=== PATIENT | female | born 2000 | race American Indian/Alaskan Native ===

== ENCOUNTER 2022-01-25 23:09 | Emergency (ER) | payer SELFPAY ==
--- NOTE | 2022-01-26 08:09 | Emergency Department Report ---
ED Abdominal Pain HPI - General Chief Complaint: Abdominal Pain Stated Complaint: ABD PAIN Time Seen by Provider: 01/26/22 07:29 Source: patient Mode of arrival: Ambulatory Limitations: Language Barrier - History of Present Illness Initial Comments: 21-year-old male who presents with bilateral lower abdominal pain 5/10 for the past week. pt is currently G2, P1, A0 including this , LMP: 12/17/2021. pain is exacerbated by movement, ptain is relieved by nothing tried. There is intermittent nausea vomiting. Patient states vaginal bleeding light that started yesterday. pt denies other vaginal discharge dysuria frequency or urgency. Patient denies history of fevers or chills. 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 MD Complaint: abdominal pain - Related Data Previous Rx's Medication Instructions Recorded Last Taken Type HYDROcodone/APAP 5-325 [[place] 1 each PO Q6HR PRN #12 tablet 01/26/22 Unknown Rx 5-325 mg TAB] cephALEXin [Keflex] 500 mg PO Q12HR 7 Days #21 cap 01/26/22 Unknown Rx Allergies Allergy/AdvReac Type Severity Reaction Status Date / Time No Known Allergies Allergy Unverified 01/25/22 23:13 ED Review of Systems ROS: Stated complaint: ABD PAIN Other details as noted in HPI Constitutional: denies: chills, fever Eyes: denies: eye pain, eye discharge, vision change ENT: denies: ear pain, throat pain Respiratory: denies: cough, shortness of breath, wheezing Cardiovascular: denies: chest pain, palpitations Endocrine: no symptoms reported Gastrointestinal: abdominal pain, nausea, vomiting. denies: diarrhea, constipation, melena Genitourinary: denies: urgency, dysuria, frequency, hematuria, discharge Musculoskeletal: denies: back pain Skin: denies: rash, lesions Neurological: denies: headache, weakness, paresthesias Psychiatric: denies: anxiety, depression Hematological/Lymphatic: denies: easy bleeding, easy bruising ED Past Medical Hx - Past Medical History Previous Medical History?: No - Surgical History Past Surgical History?: No - Social History Smoking Status: Never Smoker Substance Use Type: None - Medications Home Medications: Home Medications Medication Instructions Recorded Confirmed Last Taken Type HYDROcodone/APAP 5-325 [[place] 1 each PO Q6HR PRN #12 tablet 01/26/22 Unknown Rx 5-325 mg TAB] cephALEXin [Keflex] 500 mg PO Q12HR 7 Days #21 cap 01/26/22 Unknown Rx ED Physical Exam - General Limitations: Language Barrier General appearance: alert, in no apparent distress - Head Head exam: Present: normocephalic, normal inspection - Eye Eye exam: Present: normal appearance, EOMI Pupils: Present: normal accommodation - ENT ENT exam: Present: mucous membranes moist - Neck Neck exam: Present: normal inspection, full ROM. Absent: tenderness - Respiratory Respiratory exam: Present: normal lung sounds bilaterally. Absent: respiratory distress, wheezes, stridor - Cardiovascular Cardiovascular Exam: Present: regular rate, normal rhythm, normal heart sounds. Absent: systolic murmur, diastolic murmur, rubs, gallop - GI/Abdominal GI/Abdominal exam: Present: soft, tenderness, normal bowel sounds. Absent: distended, guarding, rebound, rigid, bruit (Bilateral lower abdomen), hernia - Rectal Rectal exam: Present: deferred - External exam: Present: other - Extremities Exam Extremities exam: Present: normal inspection, full ROM, normal capillary refill. Absent: tenderness - Back Exam Back exam: Present: normal inspection, full ROM. Absent: tenderness, CVA tenderness (R), CVA tenderness (L) - Neurological Exam Neurological exam: Present: alert, oriented X3, CN II-XII intact, normal gait - Expanded Neurological Exam Expanded Patient oriented to: Present: person, place, time Speech: Present: fluid speech Motor strength exam: RUE: 5, LUE: 5, RLE: 5, LLE: 5 Best Eye Response ([place]): (4) open spontaneously Best Motor Response ([place]): (6) obeys commands Best Verbal Response ([place]): (5) oriented [place] Total: 15 - Psychiatric Psychiatric exam: Present: normal affect, normal mood - Skin Skin exam: Present: warm, dry, intact, normal color. Absent: rash ED Course Vital Signs 01/25/22 01/26/22 01/26/22 23:12 11:20 14:12 Temperature 98.2 F Pulse Rate 81 Respiratory 18 14 14 Rate Blood Pressure 126/76 O2 Sat by Pulse 96 Oximetry ED Medical Decision Making - Lab Data Result diagrams: 01/26/22 08:04 01/26/22 08:04 - Radiology Data Radiology results: report reviewed, image reviewed ULTRASOUND OBSTETRIC LIMITED INDICATION / CLINICAL INFORMATION: abd pain pos preg. - Clinical Gestational Age (GA) in weeks, days: 5, 5 TECHNIQUE: Transabdominal and Transvaginal. COMPARISON: None available. FINDINGS: HEART RATE (beats per minute): No cardiac activity AMNIOTIC FLUID INDEX (cm) = no significant amniotic fluid (normal = 7-24 cm) PRESENTATION: Breech. ADDITIONAL FINDINGS: A deformed head appears to be in the uterine cavity with spine in the lower uterine segment. IMPRESSION: 1. Probable intrauterine demise with possible incomplete, spontaneous . Signer Name: Fab Ness MD Signed: 01/26/2022 12:07 PM Workstation Name: [id number] Transcribed By: DT Dictated By: Washington Ness MD Electronically Authenticated By: Washington Ness MD Signed Date/Time: 01/26/221206 DD/ 00 TD/TT: ULTRASOUND OBSTETRIC LIMITED INDICATION / CLINICAL INFORMATION: abd pain pos preg. - Clinical Gestational Age (GA) in weeks, days: 5, 5 TECHNIQUE: Transabdominal and Transvaginal. COMPARISON: None available. FINDINGS: HEART RATE (beats per minute): No cardiac activity AMNIOTIC FLUID INDEX (cm) = no significant amniotic fluid (normal = 7-24 cm) PRESENTATION: Breech. ADDITIONAL FINDINGS: A deformed head appears to be in the uterine cavity with spine in the lower uterine segment. IMPRESSION: 1. Probable intrauterine demise with possible incomplete, spontaneous . Signer Name: Fab Ness MD Signed: 01/26/2022 12:07 PM Workstation Name: [id number] Transcribed By: DT Dictated By: Washington Ness MD Electronically Authenticated By: Washington Ness MD Signed Date/Time: 01/26/221206 DD/ 00 TD/TT: - Medical Decision Making Ultrasound OB consistent with spontaneous plan DC to home with prescriptions. Follow-up with [facility] tomorrow return to the emergency department should symptoms worsen. Patient verbalized agreement and understanding with discharge plan. Patient DC'd home in stable condition at this time. Critical care attestation.: If time is entered above; I have spent that time in minutes in the direct care of this critically ill patient, excluding procedure time. ED Disposition Clinical Impression: Miscarriage Disposition: HOME / SELF CARE / HOMELESS Is pt being admited?: No Does the pt Need Aspirin: No Condition: Stable Instructions: Miscarriage, [id number], Managing Loss, Abdominal Pain (ED) Additional Instructions: You are having a miscarriage, it is important for you to follow-up with the [facility] doctor on Friday. Take medications as prescribed, follow-up with [facility]PER[facility] doctor in 1 to 2 days. Return to emergency department should symptoms worsen. Prescriptions: cephALEXin [Keflex] 500 mg PO Q12HR 7 Days #21 cap HYDROcodone/APAP 5-325 [[place] 5-325 mg TAB] 1 each PO Q6HR PRN #12 tablet PRN Reason: Pain Referrals: ROGER RAMIREZ MD [Staff Physician] - 2-3 Days [facility] [Provider [facility]] - 2-3 Days Forms: Work/School Release Form(ED) Print Language: UPPER SORBIAN
[2022-01-26 09:05] LABS: Basophils % (Auto) 0.3 % (0.0-1.8); Eosinophils # (Auto) 0.1 K/mm3 (0.0-0.4); Eosinophils % (Auto) 0.6 % (0.0-4.3); Hematocrit 36.8 % (30.3-42.9); Hemoglobin 11.7 gm/dl (10.1-14.3); Lymphocytes # (Auto) 2.2 K/mm3 (1.2-5.4); Lymphocytes % (Auto) 20.1 % (13.4-35.0); Mean Corpuscular HGB Conc 32 % (30-34); Mean Corpuscular Volume 85 fl (79-97); Monocytes # (Auto) 0.7 K/mm3 (0.0-0.8); Monocytes % (Auto) 5.9 % (0.0-7.3); Platelet Count 305 K/mm3 (140-440); Red Blood Count 4.31 M/mm3 (3.65-5.03); Red Cell Distribution Width 14.4 % (13.2-15.2)
[2022-01-26 09:25] LABS: Alanine Aminotransferase 12 units/L (7-56); Albumin 4.3 g/dL (3.9-5); Blood Urea Nitrogen 5 mg/dL (7-17); Calcium 9.5 mg/dL (8.4-10.2); Hemolysis Index 0
[2022-01-26 09:28] LABS: BUN/Creatinine Ratio 13
[2022-01-26 10:08] LABS: HCG Qualitative,Urine Positive (Negative)
[2022-01-26] MEDS ORDERED: ACETAMINOPHEN 500 MG TAB PO ONE (10:11)
[2022-01-26 10:18] LABS: Mucus,Urine 3+ /HPF
[2022-01-26 10:38] LABS: Bilirubin,Urine Negative (Negative); Blood,Urine 4+ (Negative); Color,Urine Straw (Yellow); Urobilinogen,Urine < 2.0 mg/dL (<2.0)
[2022-01-26 10:39] LABS: Bacteria,Urine 4+ /HPF (Negative)
[2022-01-26] MEDS ORDERED: cefTRIAXone/NS 1 GM/50 ML 1 GM/50 ML BAG IV ONE (11:46)
--- NOTE | 2022-01-26 12:11 | Ultrasound Report ---
ULTRASOUND OBSTETRIC LIMITED INDICATION / CLINICAL INFORMATION: abd pain pos preg. - Clinical Gestational Age (GA) in weeks, days: 5, 5 TECHNIQUE: Transabdominal and Transvaginal. COMPARISON: None available. FINDINGS: HEART RATE (beats per minute): No cardiac activity AMNIOTIC FLUID INDEX (cm) = no significant amniotic fluid (normal = 7-24 cm) PRESENTATION: Breech. ADDITIONAL FINDINGS: A deformed head appears to be in the uterine cavity with spine in th e lower uterine segment. IMPRESSION: 1. Probable intrauterine demise with possible incomplete, spontaneous . Signer Name: Fab Ness MD Signed: 01/26/2022 12:07 PM Workstation Name: [id number]
[2022-01-26] MEDS ORDERED: HYDROcodone/ACETAMINOPHEN 5-325 MG TAB PO ONE (13:02)
[2022-01-26 18:32] VITALS: BP 148/80
== END 2022-01-26 18:32 | disposition home or self-care (01) ==
LOC: ED 23:09
DX: O03.9 Complete or unspecified spontaneous abortion without complication (principal); Z3A.01 Less than 8 weeks gestation of pregnancy
CPT/HCPCS: 36415; 76801; 76817; 80053; 81001; 81025; 83690; 84702; 85025; 86900; 86901; 87086; 99284; J0696; 76802; 76830

== ENCOUNTER 2022-01-29 14:51 | Inpatient (IN) | payer SELFPAY ==
--- NOTE | 2022-01-29 15:30 | Emergency Department Report ---
ED Female HPI - General Stated complaint: MISCARRIGE ON 01/26/22 BLEEDING AND PAIN Time Seen by Provider: 01/29/22 15:27 Source: patient Mode of arrival: Ambulatory Limitations: Language Barrier - History of Present Illness Initial comments: 21 yo with numerous complaints She was here 2 nights ago for same- incomplete miscarriage She said My OBGYN was not open yesterday so she did not go in. She also co cough/weakness/vag bleed/abd pain Poor informant Language barrier MD Complaint: vaginal bleeding - Related Data Previous Rx's Medication Instructions Recorded Last Taken Type HYDROcodone/APAP 5-325 [[place] 1 each PO Q6HR PRN #12 tablet 01/26/22 Unknown Rx 5-325 mg TAB] cephALEXin [Keflex] 500 mg PO Q12HR 7 Days #21 cap 01/26/22 Unknown Rx Allergies Allergy/AdvReac Type Severity Reaction Status Date / Time No Known Allergies Allergy Unverified 01/25/22 23:13 ED Review of Systems ROS: Stated complaint: MISCARRIGE ON 01/26/22 BLEEDING AND PAIN Other details as noted in HPI Comment: All other systems reviewed and negative ED Past Medical Hx - Past Medical History Previous Medical History?: No - Surgical History Past Surgical History?: No - Family History Family history: no significant - Social History Smoking Status: Never Smoker Substance Use Type: None - Medications Home Medications: Home Medications Medication Instructions Recorded Confirmed Last Taken Type HYDROcodone/APAP 5-325 [[place] 1 each PO Q6HR PRN #12 tablet 01/26/22 Unknown Rx 5-325 mg TAB] cephALEXin [Keflex] 500 mg PO Q12HR 7 Days #21 cap 01/26/22 Unknown Rx ED Physical Exam - General Limitations: Language Barrier General appearance: alert, in no apparent distress - Head Head exam: Present: atraumatic, normocephalic - Eye Eye exam: Present: normal appearance - ENT ENT exam: Present: mucous membranes moist - Neck Neck exam: Present: normal inspection - Respiratory Respiratory exam: Present: normal lung sounds bilaterally. Absent: respiratory distress - Cardiovascular Cardiovascular Exam: Present: regular rate, normal rhythm. Absent: systolic murmur, diastolic murmur, rubs, gallop - GI/Abdominal GI/Abdominal exam: Present: soft, normal bowel sounds - Extremities Exam Extremities exam: Present: normal inspection - Back Exam Back exam: Present: normal inspection - Neurological Exam Neurological exam: Present: alert, oriented X3 - Psychiatric Psychiatric exam: Present: normal affect, normal mood - Skin Skin exam: Present: warm, dry, intact, normal color. Absent: rash ED Course Vital Signs 01/29/22 15:31 Temperature 100.5 F H Pulse Rate 126 H Respiratory 18 Rate Blood Pressure 119/56 [Right] O2 Sat by Pulse 100 Oximetry ED Medical Decision Making - Medical Decision Making rh pos prior ER visit reviewed will repeat lab to ER for eval Critical care attestation.: If time is entered above; I have spent that time in minutes in the direct care of this critically ill patient, excluding procedure time. ED Disposition Clinical Impression: Miscarriage Disposition: 30 STILL A PATIENT Is pt being admited?: No Does the pt Need Aspirin: No Condition: Stable
[2022-01-29 16:20] LABS: Hematocrit 28.5 % (30.3-42.9); Hemoglobin 9.4 gm/dl (10.1-14.3); Mean Corpuscular HGB Conc 33 % (30-34); Mean Corpuscular Volume 84 fl (79-97); Platelet Count 246 K/mm3 (140-440); Red Blood Count 3.39 M/mm3 (3.65-5.03)
[2022-01-29 16:33] LABS: Calcium 8.9 mg/dL (8.4-10.2); Hemolysis Index 0
[2022-01-29 16:42] LABS: Blood Urea Nitrogen 4 mg/dL (7-17)
[2022-01-29 16:47] LABS: BUN/Creatinine Ratio 8
[2022-01-29] MEDS ORDERED: POTASSIUM CHLORIDE ER 20 MEQ TAB PO ONE (19:44)
[2022-01-29] MEDS ORDERED: SODIUM CHLORIDE 0.9% 1000 ML 1,000 ML IV ONE (19:44)
[2022-01-29] MEDS ORDERED: ACETAMINOPHEN 500 MG TAB PO ONE (19:44)
--- NOTE | 2022-01-29 23:56 | Ultrasound Report ---
ULTRASOUND OBSTETRIC INDICATION: Pelvic pain, miscarriage. TECHNIQUE: Transabdominal. COMPARISON: OB ultrasound performed on 01/26/2022. FINDINGS: The previously seen intrauterine is no longer identified. The endometrial complex is thicke tone and contains heterogeneous material with mildly increased color flow, likely representing blood p roducts versus retained products of conception. No significant abnormality of the ovaries. No significant free fluid. IMPRESSION: Interval passage of the previously seen intrauterine with probable blood products versus re tained products of conception distending the endometrial canal. Signer Name: Daniel Oewn MD Signed: 01/29/2022 11:52 PM Workstation Name: [id number]
[2022-01-30] MEDS ORDERED: traMADol 50 MG TAB PO ONE (00:51)
[2022-01-30] MEDS ORDERED: IBUPROFEN 600 MG TAB PO ONE (00:51)
[2022-01-30] MEDS ORDERED: ONDANSETRON 4 MG ODT TAB PO ONE (00:51)
[2022-01-30] MEDS ORDERED: SODIUM CHLORIDE 0.9% 1000 ML 1,000 ML IV ONE ×3 (01:09→10:00)
[2022-01-30] MEDS ORDERED: SODIUM CHLORIDE 0.9% 1000 ML 1,000 ML ONE (04:19)
[2022-01-30 04:34] LABS: Bilirubin,Urine Negative (Negative); Blood,Urine Large (Negative); Color,Urine Amber (Yellow)
[2022-01-30 04:36] LABS: RBC,Urine > 182.0 /HPF (0.0-6.0)
[2022-01-30] MEDS ORDERED: cefTRIAXone/NS 1 GM/50 ML 1 GM/50 ML BAG IV ONE (04:43)
--- NOTE | 2022-01-30 04:48 | Emergency Department Report ---
ED Abdominal Pain HPI - General Chief Complaint: Upper Respiratory Infection Stated Complaint: MISCARRIGE ON 01/26/22 BLEEDING AND PAIN Time Seen by Provider: 01/29/22 15:27 Source: patient Mode of arrival: Ambulatory Limitations: Language Barrier - History of Present Illness Initial Comments: Patient is a A0 21-year-old female with no past medical history who presented to the ED with complaint of diffuse lower abdominal pain, nausea, heav y vaginal bleeding with clots, low back pain, diffuse body aches and pains, fever and chills for the last 5 days. Patient states that she was initially evaluated in this ED 3 days ago and diagnosed with miscarriage. Patient states that she has been having heavy vaginal bleeding since her last ED visit and that in the last 2 days her symptoms appear to worsen as she developed lightheadedness and generalized weakness as well. Patient states that she was unable to follow-up with an [facility]NAGER TE[facility] physician as was previously instructed. Patient denies dizziness, syncope, headache, vaginal discharge, chest pain or shortness of breath, numbness and tingling or weakness of lower and upper extremities bilaterally or diarrhea. MD Complaint: abdominal pain (lower ), other (nausea, vomiting, fever and chills) -: Gradual, days(s) (3) Location: suprapubic Radiation: none Migration to: no migration Severity scale (0 -10): 7 Quality: cramping, sharp Consistency: constant Improves With: nothing Worsens With: nothing Context: other (currently having a miscarriage with vaginal bleeding) Associated Symptoms: denies other symptoms, nausea. denies: vomiting, diarrhea, fever, chills, constipation, hematemesis, hematochezia, melena, anorexia, syncope - Related Data Previous Rx's Medication Instructions Recorded Last Taken Type HYDROcodone/APAP 5-325 [[place] 1 each PO Q6HR PRN #12 tablet 01/26/22 Unknown Rx 5-325 mg TAB] cephALEXin [Keflex] 500 mg PO Q12HR 7 Days #21 cap 01/26/22 Unknown Rx Allergies Allergy/AdvReac Type Severity Reaction Status Date / Time No Known Allergies Allergy Verified 01/30/22 04:21 ED Review of Systems ROS: Stated complaint: MISCARRIGE ON 01/26/22 BLEEDING AND PAIN Other details as noted in HPI Constitutional: denies: chills, fever Eyes: denies: eye pain, eye discharge, vision change ENT: denies: ear pain, throat pain Respiratory: denies: cough, shortness of breath, wheezing Cardiovascular: denies: chest pain, palpitations Endocrine: no symptoms reported Gastrointestinal: abdominal pain (lower abdominal pain), nausea. denies: diarrhea, hematemesis, melena Genitourinary: abnormal menses (vaginal bleeding). denies: urgency, dysuria, discharge Musculoskeletal: arthralgia, myalgia. denies: back pain, joint swelling Skin: denies: rash, lesions Neurological: headache. denies: weakness, paresthesias Psychiatric: denies: anxiety, depression Hematological/Lymphatic: denies: easy bleeding, easy bruising ED Past Medical Hx - Past Medical History Previous Medical History?: No - Surgical History Past Surgical History?: No - Social History Smoking Status: Never Smoker Substance Use Type: None - Medications Home Medications: Home Medications Medication Instructions Recorded Confirmed Last Taken Type HYDROcodone/APAP 5-325 [[place] 1 each PO Q6HR PRN #12 tablet 01/26/22 Unknown Rx 5-325 mg TAB] cephALEXin [Keflex] 500 mg PO Q12HR 7 Days #21 cap 01/26/22 Unknown Rx ED Physical Exam - General Limitations: Language Barrier General appearance: alert, in no apparent distress - Head Head exam: Present: atraumatic, normocephalic, normal inspection - Eye Eye exam: Present: normal appearance, PERRL, EOMI Pupils: Present: normal accommodation - ENT ENT exam: Present: normal exam, normal orophraynx, mucous membranes moist, TM's normal bilaterally, normal external ear exam - Neck Neck exam: Present: normal inspection, full ROM. Absent: tenderness - Respiratory Respiratory exam: Present: normal lung sounds bilaterally. Absent: respiratory distress, wheezes, rales, rhonchi, chest wall tenderness, accessory muscle use, decreased breath sounds, prolonged expiratory - Cardiovascular Cardiovascular Exam: Present: normal rhythm, tachycardia, normal heart sounds. Absent: systolic murmur, diastolic murmur, rubs, gallop - GI/Abdominal GI/Abdominal exam: Present: soft, tenderness (suprapubic), normal bowel sounds. Absent: guarding, rebound, hyperactive bowel sounds, hypoactive bowel sounds, organomegaly - Bi-manual exam: Present: other (pelvic exam deferred at this time) - Extremities Exam Extremities exam: Present: normal inspection, full ROM, normal capillary refill. Absent: tenderness, calf tenderness - Back Exam Back exam: Present: normal inspection, full ROM. Absent: tenderness, CVA tenderness (R), CVA tenderness (L), muscle spasm, paraspinal tenderness, vertebral tenderness - Neurological Exam Neurological exam: Present: alert, oriented X3, CN II-XII intact, normal gait, reflexes normal - Psychiatric Psychiatric exam: Present: normal affect, normal mood - Skin Skin exam: Present: warm, dry, intact, normal color. Absent: rash ED Course Vital Signs 01/29/22 01/29/22 01/30/22 15:31 19:31 01:09 Temperature 100.5 F H 98.6 F 99.5 F Pulse Rate 126 H 109 H 124 H Respiratory 18 18 16 Rate Blood Pressure 119/56 104/46 103/71 [Right] O2 Sat by Pulse 100 98 100 Oximetry 01/30/22 01/30/22 02:50 04:28 Temperature 99.7 F H Pulse Rate 110 H 122 H Respiratory 12 12 Rate Blood Pressure 88/34 108/61 [Right] O2 Sat by Pulse 100 100 Oximetry - Reevaluation(s) Reevaluation #1: 01/30/22 04:59 I paged and discussed the patient's case with the [facility] Physician pony edger Dr. Young who advised for review of the patient's lab test results, imaging reports agree with the plan of care to admit the patient. Dr. Young to take the patient to the OR for evacuation of products of conception there is still in the patient's uterus. Patient was therefore admitted to the hospital for further evaluation by the MANA[facility] TELE[facility] physician on-call Dr. Young ED Medical Decision Making - Lab Data Result diagrams: 01/29/22 15:46 01/29/22 15:46 - Radiology Data Radiology results: report reviewed, image reviewed [facility] [address] [place] [address] Ultrasound Report Signed Patient: ELO BARRIOS MR#: [id number] : 2000 Acct:[id number] Age/Sex: 21 / F ADM Date: 01/29/22 Loc: ED Attending Dr: Ordering Physician: KYLIE BYRNE Date of Service: 01/29/22 Procedure(s): US OB <= 14 weeks fetus Accession Number(s): [id number] cc: KYLIE BYRNE ULTRASOUND OBSTETRIC INDICATION: Pelvic pain, miscarriage. TECHNIQUE: Transabdominal. COMPARISON: OB ultrasound performed on 01/26/2022. FINDINGS: The previously seen intrauterine is no longer identified. The endometrial complex is thickened and contains heterogeneous material with mildly increased color flow, likely representing blood products versus retained products of conception. No significant abnormality of the ovaries. No significant free fluid. IMPRESSION: Interval passage of the previously seen intrauterine with probable blood products versus retained products of conception distending the endometrial canal. Signer Name: Daniel Owen MD Signed: 01/29/2022 11:52 PM Workstation Name: [id number] Transcribed By: RAUL Dictated By: Daniel Owen MD Electronically Authenticated By: Daniel Owen MD Signed Date/Time: 01/29/222351 DD/ 49 TD/TT: - Medical Decision Making This is a A0 21-year-old female with no past medical history who presented to the ED with complaint of diffuse lower abdominal pain, nausea, heavy vaginal bleeding with clots, low back pain, diffuse body aches and pains, fever and chills for the last 5 days. Patient states that she was initially evaluated in this ED 3 days ago and diagnosed with miscarriage. Patient states that she has been having heavy vaginal bleeding since her last ED visit and that in the last 2 days her symptoms appear to worsen as she developed lightheadedness and generalized weakness as well. Patient states that she was unable to follow-up with an [facility]NA[facility] TELE[facility] physician as was previously instructed. In the ED, patient is alert and oriented x3 and is not in any distress but febrile and tachycardic in triage. Patient was treated with 2 L of normal saline IV bolus. Patient was also treated with antiemetics and pain medications. Lab test results showed acute leukocytosis of 15,300, acute hyponatremia of 130 mmol/L and hypokalemia of 3.2 mmol/L. The patient hCG quant is 12,330 and lactic acid level was normal. Urinalysis showed significant urinary tract infection and blood in urine. Patient was treated also with Rocephin 1 g IV x1 and Zosyn 3.375 g IV x1. On reevaluation, patient's vital signs remained in stable with patient still tachycardic despite receiving 2 L of normal saline IV bolus and 1 L lactated Ringer's IV bolus x1. The transvaginal ultrasound showed interval passage of the previously seen intrauterine with probable blood products versus retained products of conception distending the endometrial canal. These findings were discussed with the MANA[facility] TELE[facility] physician on-call Dr. Young who upon review of the patient's record and test results as well as imaging reports advised the patient be admitted for subsequent evacuation in the OR of the retained products of conception in the patient's uterine cavity. The plan was also discussed with the ED attending physician Dr. Parker who agreed with the plan. Patient was therefore admitted to the hospital for further evaluation by Dr. Young. - Differential Diagnosis UTI; Incomplete miscarriage; Ovarian cyst; subchor. bleed Critical care attestation.: If time is entered above; I have spent that time in minutes in the direct care of this critically ill patient, excluding procedure time. ED Disposition Clinical Impression: Miscarriage, Sepsis due to incomplete miscarriage, Fever and chills, Urinary tract infection due to incomplete miscarriage, Nausea and vomiting in adult patient, Acute hyponatremia Abdominal pain Qualifiers: Abdominal location: lower abdomen, unspecified Qualified Code(s): R10.30 - Lower abdominal pain, unspecified Disposition: 02 [facility]ORT TERM [facility]OS[facility] Is pt being admited?: Yes Does the pt Need Aspirin: No Condition: Stable Referrals: RAFAEL YOUNG MD [Staff Physician] - 3-5 Days Time of Disposition: 06:21 Print Language: MALAWIAN
[2022-01-30] MEDS ORDERED: LACTATED RINGERS 1,000 ML IV ONE (04:58)
--- NOTE | 2022-01-30 06:07 | History and Physical Report ---
History of Present Illness Date of examination: 01/30/22 Date of admission: 01/30/2022 Chief complaint: Retained products of conception History of present illness: 21 y/o at 6-2/7 weeks gestation had incomplete miscarriage diagnosed last week. VB continued. She became weak. She went to ED. Retained POC's noted. She had fever, elavated WBC, low BP, and tachycardia. IV fluid boluses given in ED, but BP remained ~90/60. The patient was offered suction D&C to remove retained POC's and prevent septic . Past History Past Medical History: no pertinent history Past Surgical History: no surgical history Family/Genetic History: none Social history: no significant social history - Obstetrical History Expected Date of Delivery: 09/23/22 Actual Gestation: 6 Week(s) 2 Day(s) : 2 Para: 1 Hx # Term Pregnancies: 1 Number of Living Children: 1 Medications and Allergies Allergies Allergy/AdvReac Type Severity Reaction Status Date / Time No Known Allergies Allergy Verified 01/30/22 04:21 Home Medications Medication Instructions Recorded Confirmed Last Taken Type HYDROcodone/APAP 5-325 [[place] 1 each PO Q6HR PRN #12 tablet 01/26/22 Unknown Rx 5-325 mg TAB] cephALEXin [Keflex] 500 mg PO Q12HR 7 Days #21 cap 01/26/22 Unknown Rx Review of Systems All systems: negative - Vital Signs Vital signs: Vital Signs Temp Pulse Resp BP Pulse Ox 100.5 F H 126 H 18 119/56 100 01/29/22 15:31 01/29/22 15:31 01/29/22 15:31 01/29/22 15:31 01/29/22 15:31 Temp Pulse Resp BP Pulse Ox 99.7 F H 122 H 12 108/61 100 01/30/22 02:50 01/30/22 04:28 01/30/22 04:28 01/30/22 04:28 01/30/22 04:28 - Physical Exam Breasts: Positive: normal Cardiovascular: Regular rate Lungs: Positive: Clear to auscultation Abdomen: Positive: normal appearance Genitourinary (Female): Positive: normal external genitalia, normal perenium Vulva: both: normal Vagina: Positive: normal moisture Cervix: Positive: other (Open) Uterus: Positive: tender Adnexa: both: normal Anus/Rectum: Positive: normal perianal skin Extremities: Positive: normal Deep Tendon Reflex Grade: Normal +2 - Obstetrical FHR: other FHR comments: None. Results Result Diagrams: 01/29/22 15:46 01/29/22 15:46 Abnormal lab results 01/29/22 01/29/22 01/29/22 Range/Units 15:46 15:46 15:46 WBC 15.3 H (4.5-11.0) K/mm3 RBC 3.39 L (3.65-5.03) M/mm3 Hgb 9.4 L (10.1-14.3) gm/dl Hct 28.5 L (30.3-42.9) % Sodium 130 L D (137-145) mmol/L Potassium 3.2 L (3.6-5.0) mmol/L Chloride 97.0 L (98-107) mmol/L Carbon Dioxide 20 L (22-30) mmol/L BUN 4 L (7-17) mg/dL Creatinine 0.5 L (0.6-1.2) mg/dL Glucose 102 H (65-100) mg/dL HCG, Quant 33435 H (0-4) mIU/mL Urine Blood (Negative) Urine WBC (Auto) (0.0-6.0) /HPF 01/30/22 Range/Units 03:57 WBC (4.5-11.0) K/mm3 RBC (3.65-5.03) M/mm3 Hgb (10.1-14.3) gm/dl Hct (30.3-42.9) % Sodium (137-145) mmol/L Potassium (3.6-5.0) mmol/L Chloride (98-107) mmol/L Carbon Dioxide (22-30) mmol/L BUN (7-17) mg/dL Creatinine (0.6-1.2) mg/dL Glucose (65-100) mg/dL HCG, Quant (0-4) mIU/mL Urine Blood Large A (Negative) Urine WBC (Auto) 178.0 H (0.0-6.0) /HPF All other labs normal. Ultrasound: report reviewed, image reviewed Assessment and Plan - Patient Problems (1) Retained products of conception after miscarriage Current Visit: Yes Status: Acute Plan to address problem: The patient has retained POC's. I recommend suction D&C (preferably under sonographic guidance) to remove the retained POC's and prevent septic miscarriage. The R/A/B were explained to the patient. She consented and wishes to proceed.
[2022-01-30] MEDS ORDERED: PIPERACILLIN/TAZOBACTAM 3.375 3.375 GM/50 ML BAG IV ONE (06:14)
[2022-01-30] MEDS ORDERED: ONDANSETRON 4 MG/2 ML INJ IV PRN ×3 (06:22→10:00)
[2022-01-30] MEDS ORDERED: ACETAMINOPHEN 325 MG TAB PO PRN ×3 (06:22→09:19)
[2022-01-30] MEDS ORDERED: LIDOCAINE MPF (2%) 20 MG/1 ML VIAL 5 ML ONE (07:27)
[2022-01-30] MEDS ORDERED: fentaNYL 100 MCG/2 ML INJ ONE (07:27)
[2022-01-30] MEDS ORDERED: ROCURONIUM 50 MG/5 ML INJ IV ONE (07:27)
[2022-01-30] MEDS ORDERED: MIDAZOLAM 2 MG/2 ML INJ ONE (07:28)
[2022-01-30] MEDS ORDERED: propofoL 200 MG/20 ML VIAL IV ONE (07:28)
[2022-01-30] MEDS ORDERED: ONDANSETRON 4 MG/2 ML INJ ONE (07:29)
[2022-01-30] MEDS ORDERED: KETOROLAC 30 MG/1 ML INJ ONE (07:29)
[2022-01-30] MEDS ORDERED: METHYLERGONOVINE MALEATE 0.2 MG/ML VIAL IM ONE (07:34)
[2022-01-30] MEDS ORDERED: ePHEDrine SULFATE 50 MG/1 ML INJ ONE (08:15)
[2022-01-30] MEDS ORDERED: SODIUM CHLORIDE 0.9% IRR 1,500 ML BOTTLE IR ONE (08:29)
[2022-01-30] MEDS ORDERED: HYDROcodone/ACETAMINOPHEN 5-325 MG TAB PO PRN ×2 (08:49→10:30)
[2022-01-30] MEDS ORDERED: IBUPROFEN 800 MG TAB PO PRN ×2 (08:49→10:30)
[2022-01-30] MEDS ORDERED: MORPHINE 4 MG/1 ML INJ IV PRN ×2 (08:49→10:30)
[2022-01-30] MEDS ORDERED: POTASSIUM CHLORIDE 10 MEQ 10 MEQ/100 ML BAG IV ONE (08:57)
[2022-01-30] MEDS ORDERED: METHYLERGONOVINE 0.2 MG TABLET PO SCH (09:00)
--- NOTE | 2022-01-30 09:07 | Anesthesia Consultation ---
Anesthesia Consult and Med Hx Date of service: 01/30/22 - Airway Anesthetic Teeth Evaluation: Good ROM Head & Neck: Adequate Mental/Hyoid Distance: Adequate Mallampati Class: Class II Intubation Access Assessment: Good - Pulmonary Exam CTA: Yes - Cardiac Exam Cardiac Exam: RRR - Pre-Operative Health Status ASA Pre-Surgery Classification: ASA2, Emergency Proposed Anesthetic Plan: General - Pulmonary Hx Smoking: No Hx Asthma: No Hx Respiratory Symptoms: No SOB: No COPD: No Home Oxygen Therapy: No Hx Pneumonia: No Hx Sleep Apnea: No - Cardiovascular System Hx Hypertension: No Hx Coronary Artery Disease: No Hx Heart Attack/AMI: No Hx Angina: No Hx Percutaneous Transluminal Coronary Angioplasty (PTCA): No Hx Cardia Arrhythmia: No Hx Pacemaker: No Hx Internal Defibrillator: No Hx Valvular Heart Disease: No Hx Heart Murmur: No Hx Peripheral Vascular Disease: No - Central Nervous System Hx Neuromuscular Disorder: No Hx Seizures: No CVA: No Hx Back Pain: No Hx Psychiatric Problems: No - Gastrointestinal Hx Ulcer: No Hx Gastroesophageal Reflux Disease: No - Endocrine Hx Renal Disease: No Hx End Stage Renal Disease: No Hx Cirrhosis: No Hx Liver Disease: No Hx Insulin Dependent Diabetes: No Hx Non-Insulin Dependent Diabetes: No Hx Thyroid Disease: No Hx Hypothyroidism: No Hx Hyperthyroidism: No - Hematic Hx Anemia: No Hx Sickle Cell Disease: No - Other Systems Hx Alcohol Use: No Hx Substance Use: No Hx Cancer: No Hx Obesity: No
--- NOTE | 2022-01-30 09:09 | Anesthesia Day of Surgery ---
Anesthesia Day of Surgery - Day of Surgery Patient Examined: Yes Patient H&P Reviewed: Yes Patient is NPO: Yes Beta Blockers: No Cardiac Clearance: No (n/a) Pulmonary Clearance: No (n/a) Jerzy's Test: N/A
--- NOTE | 2022-01-30 09:10 | Operative Report ---
Operative Report Operative Report: PREOPERATIVE DIAGNOSIS: Retained products of conception. POSTOPERATIVE DIAGNOSIS: Retained products of conception. PROCEDURE PERFORMED: Suction dilation and curettage. SURGEON: Jonathan Villafuerte M.D. ANESTHESIA: General, via LMA ESTIMATED BLOOD LOSS: 50 cc. SPECIMENS: Retained products of conception sent for pathologic examination. FINDINGS: On bimanual exam, the the cervical os was open. The uterus was approximately 10 weeks size. PROCEDURE: The patient was taken to the operating room where a general anesthetic was administered. Preoperative Levaquin was administered. She was then positioned in the dorsal lithotomy position and prepped and draped in the normal sterile fashion. Once the anesthetic was found to be adequate, a bimanual exam was performed under anesthetic. Next, a self-retaining speculum was placed in the vagina. The anterior lip of cervix was grasped with the single-tooth tenaculum and due to the patient already being dilated approximately 2 cm, no cervical dilation was needed. A size 10 curved suction curette was used and connected to the suction and was placed in the cervix and a suction curettage was performed. Several passes were made with the suction curettage. Next, a sharp curettage was performed obtaining a small amount of tissue and this was followed by third suction curettage, which revealed adequate aspiration of retained products of conception on all sides of the uterus. Bedside transabdominal pelvic ultrasound was performed by mo which confirmed the retained products of conception were fully evacuated. After the procedure, the single-tooth tenaculum was removed. The cervix was seemed to be hemostatic. The self-retaining speculum was removed. After the procedure, a second bimanual exam was performed and the patient's uterus had significantly decreased in size. It is now approximately eight-weeks size. Sponge, lap, and needle counts were correct x2. The patient was taken from the operating room in stable condition after she was cleaned. She will be admitted to the mother-baby unit for 23 hours of observation to ensure that blood pressure improves and hypokalemia improves. A repeat CBC and BMP will be ordered for tomorrow morning. If those are normal, then she will likely be discharged home tomorrow on oral Motrin, Methergine, and Levaquin.
[2022-01-30] MEDS ORDERED: levoFLOXacin 500 MG TAB PO SCH (10:00)
[2022-01-30] MEDS ORDERED: D5NS W/KCL 20 MEQ 20 MEQ/1,000 ML BAG IV SCH (10:00)
[2022-01-30] MEDS: POTASSIUM CHLORIDE 10 MEQ 10 MEQ/100 ML BAG IV SCH ×3 (10:25→15:45)
--- NOTE | 2022-01-30 10:36 | Post Anesthesia Evaluation ---
- Post Anesthesia Evaluation Patient Participated: Yes Airway Patent: Yes Stable Respiratory Function: Yes Nausea/Vomiting: No Temp > 96.8F: Yes Pain Manageable: Yes Adequeate Hydration: Yes Anesthesia Complications: No
[2022-01-30] MEDS: METHYLERGONOVINE 0.2 MG TABLET PO SCH ×2 (10:53→20:26)
[2022-01-30] MEDS ORDERED: SODIUM CHLORIDE 0.9% 1000 ML 1,000 ML IV SCH (12:30)
--- NOTE | 2022-01-30 14:00 | Post Anesthesia Evaluation ---
- Post Anesthesia Evaluation Patient Participated: Yes Airway Patent: Yes Stable Respiratory Function: Yes Nausea/Vomiting: Yes Temp > 96.8F: Yes Pain Manageable: Yes Adequeate Hydration: Yes Anesthesia Complications: No Block Receding Appropriately: Not Applicable Patient on Ventilator: No
--- NOTE | 2022-01-30 16:38 | Event Note ---
Date: 01/30/22 pt seen on when she was taken from recovery room at 1pm. pt had no complaints. Vitals wnl. Abd soft and perineal pad with small bright red blood without clots that no increase with pressing on the fundus. Will continue IV potassium K-rider and repeat level 2hrs after the last IV dose then continue IV D5LR with 20meq at 125cc/hr.
[2022-01-30] MEDS: D5NS W/KCL 20 MEQ 20 MEQ/1,000 ML BAG IV SCH (20:26)
[2022-01-31] MEDS: D5NS W/KCL 20 MEQ 20 MEQ/1,000 ML BAG IV SCH (03:10)
[2022-01-31] MEDS: METHYLERGONOVINE 0.2 MG TABLET PO SCH ×2 (05:52→15:49)
[2022-01-31] MEDS ORDERED: levoFLOXacin 500 MG TAB PO SCH (10:00)
[2022-01-31 10:01] LABS: Basophils % (Auto) 0.1 % (0.0-1.8); Eosinophils % (Auto) 0.3 % (0.0-4.3); Hematocrit 23.5 % (30.3-42.9); Hemoglobin 7.7 gm/dl (10.1-14.3); Lymphocytes # (Auto) 1.8 K/mm3 (1.2-5.4); Lymphocytes % (Auto) 12.7 % (13.4-35.0); Mean Corpuscular HGB Conc 33 % (30-34); Mean Corpuscular Volume 84 fl (79-97); Monocytes # (Auto) 0.7 K/mm3 (0.0-0.8); Monocytes % (Auto) 4.9 % (0.0-7.3); Platelet Count 200 K/mm3 (140-440); Red Blood Count 2.79 M/mm3 (3.65-5.03); Red Cell Distribution Width 14.3 % (13.2-15.2)
[2022-01-31 10:18] LABS: Blood Urea Nitrogen 4 mg/dL (7-17); Calcium 8.7 mg/dL (8.4-10.2); Hemolysis Index 6
[2022-01-31 10:22] LABS: BUN/Creatinine Ratio 10
--- NOTE | 2022-01-31 13:23 | Post Anesthesia Evaluation ---
- Post Anesthesia Evaluation Patient Participated: Yes Airway Patent: Yes Stable Respiratory Function: Yes Nausea/Vomiting: No Temp > 96.8F: Yes Pain Manageable: Yes Adequeate Hydration: Yes Anesthesia Complications: No Block Receding Appropriately: No Patient on Ventilator: No
[2022-01-31 16:30] VITALS: BP 117/62
--- NOTE | 2022-01-31 16:36 | Progress Note ---
Assessment and Plan A S/p D&C secondary to retained POC Hypokalemia Anemia P Pt. stable. No further bleeding. VSS Hypokalemia resolve Asymptomatic anemia. Will start on ferrous sulfate D/c home today F/u in 2 weeks in clinic Subjective Date of service: 01/31/22 Principal diagnosis: Retained POC Interval history: Pt. without complain. No VB, abdominal pain, fever or chills. No SOB or chest pain with ambulation. Objective - Constitutional Vitals: Vital Signs - 12hr 01/31/22 01/31/22 01/31/22 05:20 07:12 07:38 Temperature 98.1 F 97.9 F Pulse Rate 59 L 59 L Respiratory 16 20 Rate Blood Pressure 100/60 106/63 O2 Sat by Pulse 100 99 98 Oximetry 01/31/22 11:29 Temperature 97.5 F L Pulse Rate 71 Respiratory 20 Rate Blood Pressure 101/56 O2 Sat by Pulse 99 Oximetry General appearance: Present: no acute distress - Respiratory Respiratory effort: normal Respiratory: bilateral: CTA - Cardiovascular Rhythm: regular Extremities: no ischemia, No edema, Full ROM - Gastrointestinal General gastrointestinal: Present: soft, non-tender - Labs CBC & Chem 7: 01/31/22 09:37 01/31/22 09:37 Labs: Abnormal lab results 01/31/22 01/31/22 Range/Units 09:37 09:37 WBC 13.8 H (4.5-11.0) K/mm3 RBC 2.79 L (3.65-5.03) M/mm3 Hgb 7.7 L (10.1-14.3) gm/dl Hct 23.5 L (30.3-42.9) % Lymph % (Auto) 12.7 L (13.4-35.0) % Seg Neutrophils % 82.0 H (40.0-70.0) % Seg Neutrophils # 11.4 H (1.8-7.7) K/mm3 Chloride 111.9 H (98-107) mmol/L BUN 4 L (7-17) mg/dL Creatinine 0.4 L (0.6-1.2) mg/dL Glucose 108 H (65-100) mg/dL Medications & Allergies - Medications Allergies/Adverse Reactions: Allergies No Known Allergies Allergy (Verified 01/30/22 04:21) Home Medications: Home Medications Medication Instructions Recorded Confirmed Last Taken Type HYDROcodone/APAP 5-325 [[place] 1 each PO Q6HR PRN #12 tablet 01/26/22 01/30/22 Unknown Rx 5-325 mg TAB] cephALEXin [Keflex] 500 mg PO Q12HR 7 Days #21 cap 01/26/22 01/30/22 Unknown Rx Active Medications: Generic Name Dose Route Start Last Admin Trade Name Freq PRN Reason Stop Dose Admin Acetaminophen 650 mg 01/30/22 06:22 Acetaminophen 325 Mg Tab PO Q4H PRN Pain MILD(1-3)/Fever >100.5/DOUGLASS Hydrocodone Bitart/Acetaminophen 2 each 01/30/22 10:30 01/31/22 08:40 Hydrocodone/Acetaminophen 5-325 Mg Tab PO 2 each Q6H PRN Administration Pain , Severe (7-10) Ibuprofen 800 mg 01/30/22 10:30 Ibuprofen 800 Mg Tab PO Q8H PRN Pain, Moderate (4-6) Levofloxacin 500 mg 01/31/22 10:00 01/31/22 09:43 Levofloxacin 500 Mg Tab PO 02/06/22 10:01 500 mg QDAY GABY Administration Protocol Methylergonovine Maleate 0.2 mg 01/30/22 10:00 01/31/22 15:49 Methylergonovine 0.2 Mg Tablet PO 02/02/22 08:59 0.2 mg Q8H GABY Administration Morphine Sulfate 2 mg 01/30/22 10:30 Morphine 4 Mg/1 Ml Inj IV Q4H PRN Pain , Severe (7-10) Ondansetron HCl 4 mg 01/30/22 10:00 Ondansetron 4 Mg/2 Ml Inj IV Q8H PRN Nausea And Vomiting Sodium Chloride 10 ml 01/30/22 10:00 Sodium Chloride 0.9% 10 Ml Flush Syringe IV BID GABY Sodium Chloride 10 ml 01/30/22 09:19 Sodium Chloride 0.9% 10 Ml Flush Syringe IV PRN PRN LINE FLUSH
--- NOTE | 2022-01-31 17:11 | Discharge Summary ---
Providers - Providers Date of Admission: 01/30/22 09:20 Date of discharge: 01/31/22 Attending physician: RAFAEL YOUNG MD 01/30/22 Consult to Case Management [CONS] Routine Services Needed at Discharge: Exhaust Worker Notified:: no Comment:: Help patient apply for Medicaid Primary care physician: STEPHEN ARECHIGA Hospitalization Reason for admission: Retained products of conception Condition: Good Pertinent studies: Pelvic US Procedures: Dilation And Curettage Disposition: 30 STILL A PATIENT Final Discharge Diagnosis (Prints w/discharge instructions): Incomplete . Status post Dilation and Curettage - Discharge Diagnoses (1) Incomplete Status: Acute (2) Incomplete Status: Acute Core Measure Documentation - Palliative Care Palliative Care/ Comfort Measures: Not Applicable - Core Measures Any of the following diagnoses?: none - VTE Discharge Requirements Deep Vein Thrombosis/Pulmonary Embolism Present on Admission: No Has pt received <5 days of overlap therapy or INR<2.0: No Anticoagulant overlap therapy prescribed at discharge: No Contraindication No Overlap Therapy order at [facility]: Not Indicated - Acute CT Discharge Requirements Aspirin at discharge: Yes CRISTIAN/ARB for LVSD if EF <40%: Not Applicable Exam - Constitutional Vitals: Temp Pulse Resp BP Pulse Ox 98.0 F 65 28 H 117/62 99 01/31/22 16:18 01/31/22 16:18 01/31/22 16:18 01/31/22 16:18 01/31/22 16:18 General appearance: Present: no acute distress - Respiratory Respiratory effort: normal Respiratory: bilateral: CTA - Cardiovascular Rhythm: regular - Extremities Extremities: no ischemia, No edema - Abdominal General gastrointestinal: Present: soft, non-tender Plan Activity: other (Nothing per vagina) Weight Bearing Status: Weight Bear as Tolerated Diet: regular Follow up with: RAFAEL YOUNG MD [Staff Physician] - 3-5 Days Forms: [facility] Discharge Summary Prescriptions: Ibuprofen [Motrin 800 MG tab] 800 mg PO Q6H PRN #30 tablet PRN Reason: Pain, Moderate (4-6)
== END 2022-01-31 17:45 | disposition home or self-care (01) | DRG 770 ==
LOC: ED 14:51 → OR 01-30 09:19 → OBSVTOIN 01-30 09:20 → OB 01-30 09:20 → 3A 01-30 11:06 → OB 01-30 11:09
PROVIDERS: ADMIT Obstetrics & Gynecology; ATTEND Obstetrics & Gynecology Gynecology
PROC: 10D17ZZ Extraction of Products of Conception, Retained, Via Natural or Artificial Opening (ICD-10-PCS; principal; 2022-01-30)
DX: O03.4 Incomplete spontaneous abortion without complication (principal); N39.0 Urinary tract infection, site not specified; E87.1 Hypo-osmolality and hyponatremia; Z20.822 Contact with and (suspected) exposure to COVID-19; O03.37 Sepsis following incomplete spontaneous abortion; O03.38 Urinary tract infection following incomplete spontaneous abortion; D64.9 Anemia, unspecified; E87.6 Hypokalemia
CPT/HCPCS: 36415; 76801; 80048; 81001; 82140; 84132; 84702; 85025; 85027; 86850; 86900; 86901; 88305; G0378; J3480; J3490; J0696; J1885; J1956; J2210; J2250; J2405; J2543; J2704; J3010; J7030; J7120; Q0162; U0003